=== PATIENT | female | born 1995 | race Caucasian/White ===

== ENCOUNTER 2022-04-27 01:33 | Emergency (ER) | payer MEDICAID ==
[~2022-04-27] VITALS: Ht 157.5 cm; Wt 55.8 kg
[2022-04-27 01:55] VITALS: BP_SYST 119
--- NOTE | 2022-04-27 01:59 | NUR ---
26 YR OLD FEMALE AOX4, AMBULATORY WITH COMPLAINT OF ACUTE BACK PAIN 8/10 FOR ONE DAY AFTER BEING PRESCRIBED ANTIBIOTIC FROM URGENT CARE. PT IS CONCERNED ABOUT KIDNEY INFECTION. PT REPORTS NAUSEA BUT NO VOMITING. SISTER AT THE BEDSIDE. PENDING MD EVALUATION
--- NOTE | 2022-04-27 02:03 | NUR ---
RECEIVED PT FROM C/O LOWER BACK PAIN S/P TAKING PRESCRIBED CIPRO AROUND 1999 TONIGHT. PT DENIES SOB, NO RASHES,HIVES NOTED. SHE STATED THAT SHE WENT TO URGENT CARE EARLIER AND PER PT THEY DID UA ON HER AND SHE WAS INFORMED THAT SHE HAS NO INFECTION IN HER URINE. PMH:KIDNEY STONE PRESENTED HERE AAO, NO SOB NOTED. PENDING MD SCHROEDER
[2022-04-27] MEDS ORDERED: NACL 0.9% 1,000 ML IV ONE ×3 (02:30→04:00)
[2022-04-27] MEDS ORDERED: MORPHINE 4 MG INJ. 4 MG/ML VIAL IVP ONE ×2 (02:30→04:45)
[2022-04-27] MEDS ORDERED: ONDANSETRON HCL 4 MG/2 ML VIAL IVP ONE ×3 (02:30→04:00)
[2022-04-27 03:09] LABS: BASOPHILS % (AUTO) 0.2 % (0.0-2.0); EOSINOPHILS # (AUTO) 0.1 K/uL (0.0-0.4); EOSINOPHILS % (AUTO) 0.9 % (0.0-4.0); HEMATOCRIT 39.4 % (36-48); HEMOGLOBIN 13.4 g/dL (12.0-16.0); LYMPHOCYTES # (AUTO) 2.3 K/uL (1.0-5.5); LYMPHOCYTES % (AUTO) 14.4 % (20.5-51.5); MEAN CORPUSCULAR HEMOGLOBIN 29 pg (27-31); MEAN CORPUSCULAR HGB CONC 34 % (32-36); MEAN CORPUSCULAR VOLUME 86 fL (79.0-98.0); MONOCYTES # (AUTO) 1.2 K/uL (0.0-1.0); MONOCYTES % (AUTO) 7.8 % (1.7-9.3); NEUTROPHILS # (AUTO) 12.2 K/uL (1.8-7.7); NEUTROPHILS % (AUTO) 76.7 % (40.0-70.0); PLATELET COUNT (AUTO) 266 K/uL (130-430); RED BLOOD CELL COUNT(AUTO) 4.57 MIL/uL (4.2-6.2); RED CELL DISTRIBUTION WIDTH 12.8 % (9.0-15.0); WHITE BLOOD COUNT (AUTO) 15.9 K/uL (4.8-10.8)
[2022-04-27 03:11] LABS: BILIRUBIN,URINE NEGATIVE (NEGATIVE); CLARITY/URINE CLEAR (CLEAR); COLOR,URINE YELLOW (YELLOW); GLUCOSE,URINE NEGATIVE (NEGATIVE); KETONES,URINE NEGATIVE (NEGATIVE); LEUKOCYTE ESTERASE ,URINE NEGATIVE (NEGATIVE); NITRITE, URINE NEGATIVE (NEGATIVE); PH,URINE 6.5 (5.0-8.0); PROTEIN URINE 1+ (NEGATIVE); UROBILINOGEN,URINE 0.2 (0.2-1.0)
--- NOTE | 2022-04-27 03:11 | NUR ---
IVL EST TO RT AC 20G, BLOOD DRAWN AND SENT TO LAB. URINE SPECIMEN COLLECTED AND SENT TO LAB
[2022-04-27 03:16] LABS: BLOOD, URINE TRACE (NEGATIVE)
[2022-04-27 03:19] LABS: BACTERIA,URINE FEW /HPF (None Seen); RBC,URINE 0-3 /HPF (0-3); WBC,URINE 0-3 /HPF (0-3)
[2022-04-27 03:36] LABS: CALCIUM 8.7 mg/dL (8.4-11.0); CREATININE 1.35 mg/dL (0.55-1.30)
[2022-04-27 03:40] LABS: ALBUMIN 4.3 g/dL (3.4-4.8); TOTAL BILIRUBIN 0.5 mg/dL (0.0-1.0)
[2022-04-27] MEDS ORDERED: GENTAMICIN 120 mg/100 mL NS 100 ML IV ONE ×2 (03:45)
--- NOTE | 2022-04-27 04:13 | NUR ---
DR. HUNTER AT BEDSIDE FOR RE EVAL.
[2022-04-27] MEDS ORDERED: POTASSIUM CHLORIDE 20 MEQ TAB.PRT.SR PO ONE (04:15)
[2022-04-27] MEDS ORDERED: ACETAMINOPHEN 500 MG TABLET PO ONE (04:15)
[2022-04-27] MEDS ORDERED: PROCHLORPERAZINE EDISYLATE 10 MG/2 ML VIAL IVP ONE (04:30)
[2022-04-27] MEDS ORDERED: DIPHENHYDRAMINE INJ 50 MG/ML VIAL IVP ONE (04:30)
[2022-04-27] MEDS ORDERED: DIPHENHYDRAMINE INJ 50 MG/ML VIAL ONE (04:31)
[2022-04-27] MEDS ORDERED: PROCHLORPERAZINE EDISYLATE 10 MG/2 ML VIAL ONE (04:31)
[2022-04-27] MEDS ORDERED: ONDA-8 TL (05:28)
[2022-04-27 05:43] VITALS: BP_SYST 135
--- NOTE | 2022-04-27 05:44 | NUR ---
PT LT AMA SHE VERBALIZED UNDERSTANDING ON ALL THE CONSEQUENCES OF SIGNING OUT AMA DISCUSS BY DR. HNUTER AT BEDSIDE. DC INSTRUCTION AND PRESCRIPTION WERE GIVEN TO PT WELL AD SHE VERBALIZED UNDERSTANDING
== END 2022-04-27 05:44 | disposition left against medical advice (07) ==
LOC: SED 01:33
DX: A41.9 Sepsis, unspecified organism (principal); R65.20 Severe sepsis without septic shock; N10 Acute pyelonephritis; E87.6 Hypokalemia; Z88.0 Allergy status to penicillin; Z88.1 Allergy status to other antibiotic agents; Z88.6 Allergy status to analgesic agent; Z79.899 Other long term (current) drug therapy
CPT/HCPCS: 36415; 74176; 76376; 80053; 81000; 83605; 85025; 87040; 96361; 96365; 96366; 96375; 96376; 99291; J0780; J1200; J1580; J2270; J2405; J7030

== ENCOUNTER 2022-04-27 13:44 | Emergency (ER) | payer MEDICAID ==
[~2022-04-27] VITALS: Ht 157.5 cm; Wt 55.8 kg
[~2022-04-27 13:44] MED LIST: ONDA-8 TL
[2022-04-27 14:00] VITALS: BP_SYST 119
--- NOTE | 2022-04-27 14:00 | NUR ---
Patient triaged and placed in waiting room. VSS and patient appears in no acute distress at this time. Accompanied by PARENTS, awaiting available bed, and MD notified of need for MSE.
--- NOTE | 2022-04-27 14:14 | NUR ---
BROUGHT BACK TO BED #8 VIA WHEELCHAIR, REPORT GIVEN TO CHRISTIANE
--- NOTE | 2022-04-27 14:29 | NUR ---
26YO F C/O BILATERAL FLANK PAIN SINCE LAST NIGHT. PATIENT WENT TO URGENT CARE LAST NIGHT AND WAS STARTED ON CIPROFLOXACIN. PATIENT WAS SEEN IN ER THIS AM AND WAS DIAGNOSED WITH SEPSIS BUT WENT AGAINST ADVICE TO BE ADMITTED. DENIES FEVER, DYSURIA, HEMATURIA. ERMD MADE AWARE OF PT STATUS.
[2022-04-27] MEDS ORDERED: KETOROLAC TROMETHAMINE 60 MG/2 ML VIAL IM ONE (14:45)
[2022-04-27] MEDS ORDERED: cefTRIAXone 1 GM in LIDOCAINE 1%, 20 ML MDV 2.1 ML IM ONE (14:45)
[2022-04-27 15:09] VITALS: BP_SYST 119
--- NOTE | 2022-04-27 15:09 | NUR ---
Patient given written and verbal discharge instructions and verbalizes understanding. ER MD discussed with patient the results and treatment provided. Patient in stable condition. ID arm band removed. NO RX given. Patient educated on pain management and to follow up with PMD. Pain Scale 2. Opportunity for questions provided and answered. Medication side effect fact sheet provided.
== END 2022-04-27 15:09 | disposition home or self-care (01) ==
LOC: SED 13:44
DX: N10 Acute pyelonephritis (principal); Z88.0 Allergy status to penicillin; Z88.1 Allergy status to other antibiotic agents; Z88.6 Allergy status to analgesic agent
CPT/HCPCS: 96372; 99284; J0696; J1885; J2001

== ENCOUNTER 2023-09-25 12:06 | Outpatient (CLI) | payer BC | END 2023-09-25 18:07 | disposition home or self-care (01) | LOC: SUS 12:06 | DX: N32.89 Other specified disorders of bladder (principal); Z87.440 Personal history of urinary (tract) infections | CPT/HCPCS: 76770 ==